=== PATIENT | male | born 1935 | race Caucasian/White ===

== ENCOUNTER 2016-06-08 11:14 | Inpatient (IN) | payer MEDICARE ==
[~2016-06-08] VITALS: Ht 180.3 cm; Wt 58.7 kg
[~2016-06-08 11:14] MED LIST: ACET325T21 PO; ALBU8.5H3 INH; ALBU8.5H3 MT; ALBUT; ALBUTEROL INH; AMLO-218 PO; AMLO5TAB2 PO; ASPI81TA50 PO; CALC-31 PO; CALC3.7S5 NAS; CEPH-368 PO; CIPR500T87 PO; CYCL-259 PO; DUONEB INH; FURO-93 PO; FURO20TA3 PO; FURO40TA6 PO; HYDR-3138 PO; IPRA3AMP INH; IPRA3AMP IPPB; LISI-170 PO; METO5TAB5 PO; MORP15TA39 PO; POTA10TA90 PO; PRAV40TA PO; PRAV40TA2 PO; PRED50TA PO; PREDNISONE PO; RIVA10TA PO; SPIR25TA3 PO; TAMS0.4C2 PO; TIOT18CA INH; WARF2.5T PO; WARF5TAB; WARF5TAB7 PO
[2016-06-08] MEDS ORDERED: methylPREDNISolone SOD SUCC 125 MG/2 ML ONE (11:43)
[2016-06-08] MEDS ORDERED: SODIUM CHLORIDE FLUSH 10ML SYR IVF ONE (12:00)
[2016-06-08] MEDS ORDERED: methylPREDNISolone SOD SUCC 125 MG/2 ML IVP ONE (12:00)
[2016-06-08] MEDS ORDERED: MAGNESIUM SULFATE PMX 2GM/50ML 50 ML IV ONE (12:00)
[2016-06-08] MEDS ORDERED: ALBUTEROL/IPRATROPIUM 2.5MG/0.5MG, 3 ML NPPB SCH (12:00)
[2016-06-08 12:12] LABS: ABG COLLECTION SITE LEFT RADIAL; COLLATERAL CIRCULATION TESTING NORMAL
[2016-06-08 12:28] LABS: BLOOD UREA NITROGEN 40 mg/dL (7-18)
[2016-06-08 12:33] LABS: HEMOGLOBIN 13.4 g/dL (13.7-18.0)
[2016-06-08 12:34] LABS: ASPARTATE AMINO TRANSFERASE 16 U/L (15-37); IS PT STATUS REG ER OR PRE ER? YES
[2016-06-08] MEDS ORDERED: AZITHROMYCIN 500 MG in SODIUM CHLORIDE 0.9% 250 ML IV ONE (13:30)
[2016-06-08] MEDS: SODIUM CHLORIDE 0.9% 1,000 ML IV SCH (13:43)
[2016-06-08] MEDS ORDERED: ENALAPRILAT 1.25 MG/ML, 2ML IVPush PRN (14:00)
[2016-06-08] MEDS ORDERED: HYDROcodone/APAP 5/325 TABLET PO PRN (14:00)
[2016-06-08] MEDS ORDERED: MORPHINE SULFATE 4 MG/ML, 1ML IVPush PRN (14:00)
[2016-06-08] MEDS ORDERED: DOCUSATE 100 MG CAPSULE PO PRN (14:00)
[2016-06-08] MEDS: ALBUTEROL/IPRATROPIUM 2.5MG/0.5MG, 3 ML NPPB SCH ×3 (14:00→22:47)
[2016-06-08] MEDS: methylPREDNISolone SOD SUCC 125 MG/2 ML IVPush SCH ×2 (14:30→22:54)
[2016-06-08] MEDS: NICOTINE 14MG/24 HR PATCH.TD24 TD SCH (16:10)
[2016-06-08 17:50] VITALS: BP 149/76
[2016-06-08] MEDS ORDERED: WARFARIN 3 MG TABLET PO-COUM ONE (18:00)
[2016-06-08] MEDS: ACETAMINOPHEN 325 MG TABLET PO PRN (18:57)
[2016-06-08 19:45] LABS: BLOOD UREA NITROGEN 44 mg/dL (7-18)
[2016-06-08] MEDS: WARFARIN 2.5 MG TABLET PO-COUM SCH (20:25)
[2016-06-08 22:10] VITALS: BP 133/72
[2016-06-09] MEDS: SODIUM CHLORIDE 0.9% 1,000 ML IV SCH ×2 (01:25→09:43)
[2016-06-09 01:30] VITALS: BP 146/75
[2016-06-09] MEDS: ALBUTEROL/IPRATROPIUM 2.5MG/0.5MG, 3 ML NPPB SCH ×4 (01:58→22:09)
[2016-06-09] MEDS: ACETAMINOPHEN 325 MG TABLET PO PRN (03:32)
[2016-06-09] MEDS: methylPREDNISolone SOD SUCC 125 MG/2 ML IVPush SCH ×2 (04:51→19:06)
[2016-06-09 05:50] LABS: BLOOD UREA NITROGEN 46 mg/dL (7-18)
[2016-06-09 06:24] LABS: HEMOGLOBIN 12.9 g/dL (13.7-18.0)
[2016-06-09 07:08] LABS: DIFF TOTAL CELLS COUNTED 100 CELL DIFF
[2016-06-09 07:10] LABS: ANISOCYTOSIS 1+; VERIFY COUNTS? YES
[2016-06-09 07:20] VITALS: BP 125/68
[2016-06-09] MEDS: SPIRONOLACTONE 25 MG TABLET PO SCH (08:29)
[2016-06-09] MEDS: TAMSULOSIN 0.4 MG CAP.ER.24H PO SCH (08:29)
[2016-06-09] MEDS: CALCIUM/VITAMIN D3 250-125 TABLET PO SCH (08:29)
[2016-06-09] MEDS: METOLAZONE 5 MG TABLET PO SCH (08:29)
[2016-06-09] MEDS: AMLODIPINE 5 MG TABLET PO SCH (08:30)
[2016-06-09] MEDS: PRAVASTATIN 40 MG TABLET PO SCH (08:30)
[2016-06-09] MEDS: AZITHROMYCIN 250 MG TABLET PO SCH (08:30)
[2016-06-09] MEDS: FUROSEMIDE 40 MG TABLET PO SCH (08:30)
[2016-06-09] MEDS ORDERED: predniSONE 50MG TABLET PO SCH (09:00)
[2016-06-09] MEDS ORDERED: WARFARIN 2.5 MG TABLET PO-COUM SCH (09:00)
[2016-06-09] MEDS: CALCITONIN NASAL 200 UNITS/0.09ML, 3.7ML NAS SCH (10:21)
[2016-06-09] MEDS ORDERED: methylPREDNISolone SOD SUCC 125 MG/2 ML IVPush SCH ×2 (13:00)
[2016-06-09 13:10] VITALS: BP 153/84
[2016-06-09] MEDS: NICOTINE 14MG/24 HR PATCH.TD24 TD SCH (15:24)
[2016-06-09] MEDS: WARFARIN 2.5 MG TABLET PO-COUM SCH (18:03)
[2016-06-09 21:33] VITALS: BP 120/75
[2016-06-10] MEDS: methylPREDNISolone SOD SUCC 125 MG/2 ML IVPush SCH ×4 (01:18→23:44)
[2016-06-10] MEDS: ALBUTEROL/IPRATROPIUM 2.5MG/0.5MG, 3 ML NPPB SCH ×6 (03:10→23:00)
[2016-06-10 05:12] VITALS: BP 159/82
[2016-06-10 07:37] VITALS: BP 122/75
[2016-06-10 08:21] LABS: BLOOD UREA NITROGEN 48 mg/dL (7-18)
[2016-06-10] MEDS: CALCITONIN NASAL 200 UNITS/0.09ML, 3.7ML NAS SCH (08:42)
[2016-06-10] MEDS: AMLODIPINE 5 MG TABLET PO SCH (08:44)
[2016-06-10] MEDS: FUROSEMIDE 40 MG TABLET PO SCH (08:44)
[2016-06-10] MEDS: TAMSULOSIN 0.4 MG CAP.ER.24H PO SCH (08:44)
[2016-06-10] MEDS: AZITHROMYCIN 250 MG TABLET PO SCH (08:45)
[2016-06-10] MEDS: METOLAZONE 5 MG TABLET PO SCH (08:45)
[2016-06-10] MEDS: PRAVASTATIN 40 MG TABLET PO SCH (08:45)
[2016-06-10] MEDS: CALCIUM/VITAMIN D3 250-125 TABLET PO SCH (08:45)
[2016-06-10] MEDS: SPIRONOLACTONE 25 MG TABLET PO SCH (08:45)
[2016-06-10] MEDS: OMEPRAZOLE 10 MG CAPSULE.DR PO SCH (08:46)
[2016-06-10] MEDS ORDERED: methylPREDNISolone SOD SUCC 125 MG/2 ML IVPush SCH (09:00)
[2016-06-10] MEDS ORDERED: POTASSIUM CHLORIDE 20 MEQ TAB.ER.PRT PO ONE (09:30)
[2016-06-10 12:19] VITALS: BP 164/91
[2016-06-10] MEDS: NICOTINE 14MG/24 HR PATCH.TD24 TD SCH (14:16)
[2016-06-10] MEDS: WARFARIN 2.5 MG TABLET PO-COUM SCH (18:10)
[2016-06-10 19:56] VITALS: BP 162/99
[2016-06-10] MEDS: GUAIFENESIN ER 600 MG TABLET PO SCH (23:41)
[2016-06-11 02:37] VITALS: BP 157/81
[2016-06-11] MEDS: ALBUTEROL/IPRATROPIUM 2.5MG/0.5MG, 3 ML NPPB SCH ×5 (03:10→18:25)
[2016-06-11 06:02] LABS: BLOOD UREA NITROGEN 43 mg/dL (7-18)
[2016-06-11 06:40] VITALS: BP 152/92
[2016-06-11] MEDS: FUROSEMIDE 40 MG TABLET PO SCH (09:59)
[2016-06-11] MEDS: POTASSIUM CHLORIDE 20 MEQ TAB.ER.PRT PO SCH ×2 (09:59→17:29)
[2016-06-11] MEDS: GUAIFENESIN ER 600 MG TABLET PO SCH ×2 (09:59→22:00)
[2016-06-11] MEDS: AZITHROMYCIN 250 MG TABLET PO SCH (09:59)
[2016-06-11] MEDS: SPIRONOLACTONE 25 MG TABLET PO SCH (09:59)
[2016-06-11] MEDS: METOLAZONE 5 MG TABLET PO SCH (09:59)
[2016-06-11] MEDS: CALCIUM/VITAMIN D3 250-125 TABLET PO SCH (09:59)
[2016-06-11] MEDS: AMLODIPINE 5 MG TABLET PO SCH (09:59)
[2016-06-11] MEDS: TAMSULOSIN 0.4 MG CAP.ER.24H PO SCH (09:59)
[2016-06-11] MEDS: PRAVASTATIN 40 MG TABLET PO SCH (10:00)
[2016-06-11] MEDS: OMEPRAZOLE 10 MG CAPSULE.DR PO SCH (10:00)
[2016-06-11] MEDS: CALCITONIN NASAL 200 UNITS/0.09ML, 3.7ML NAS SCH (10:02)
[2016-06-11] MEDS: IPRATROPIUM 0.5 MG/2.5 ML INHA HHN SCH ×2 (11:00→15:00)
[2016-06-11 12:58] VITALS: BP 144/80
[2016-06-11] MEDS: NICOTINE 14MG/24 HR PATCH.TD24 TD SCH (13:35)
[2016-06-11] MEDS ORDERED: methylPREDNISolone SOD SUCC 125 MG/2 ML IVPush SCH (14:00)
[2016-06-11] MEDS: ACETAMINOPHEN 325 MG TABLET PO PRN (17:29)
[2016-06-11] MEDS: WARFARIN 2.5 MG TABLET PO-COUM SCH (17:29)
[2016-06-11 20:17] VITALS: BP 144/81
[2016-06-11] MEDS: methylPREDNISolone SOD SUCC 125 MG/2 ML IVPush SCH (20:25)
[2016-06-12 02:14] VITALS: BP 138/85
[2016-06-12] MEDS: methylPREDNISolone SOD SUCC 125 MG/2 ML IVPush SCH ×4 (02:35→21:24)
[2016-06-12 05:27] LABS: BLOOD UREA NITROGEN 55 mg/dL (7-18)
[2016-06-12] MEDS ORDERED: MAGNESIUM SULFATE 1 GM in SODIUM CHLORIDE 0.9% 50 ML IV ONE (06:30)
[2016-06-12] MEDS ORDERED: SODIUM PHOSPHATE 4 MEQ/ML IV ONE (06:30)
[2016-06-12] MEDS ORDERED: SODIUM PHOSPHATE 20 MMOL in SODIUM CHLORIDE 0.9% 500 ML IV ONE (07:00)
[2016-06-12] MEDS ORDERED: ALBUTEROL/IPRATROPIUM 2.5MG/0.5MG, 3 ML NPPB PRN (07:00)
[2016-06-12 07:27] VITALS: BP 141/82
[2016-06-12] MEDS: IPRATROPIUM 0.5 MG/2.5 ML INHA HHN SCH ×4 (07:30→23:37)
[2016-06-12] MEDS: OMEPRAZOLE 10 MG CAPSULE.DR PO SCH (10:32)
[2016-06-12] MEDS: POTASSIUM CHLORIDE 20 MEQ TAB.ER.PRT PO SCH ×2 (10:32→17:33)
[2016-06-12] MEDS: FUROSEMIDE 40 MG TABLET PO SCH (10:33)
[2016-06-12] MEDS: CALCITONIN NASAL 200 UNITS/0.09ML, 3.7ML NAS SCH (10:33)
[2016-06-12] MEDS: TAMSULOSIN 0.4 MG CAP.ER.24H PO SCH (10:33)
[2016-06-12] MEDS: SPIRONOLACTONE 25 MG TABLET PO SCH (10:33)
[2016-06-12] MEDS: GUAIFENESIN ER 600 MG TABLET PO SCH ×2 (10:33→21:23)
[2016-06-12] MEDS: PRAVASTATIN 40 MG TABLET PO SCH (10:34)
[2016-06-12] MEDS: METOLAZONE 5 MG TABLET PO SCH (10:34)
[2016-06-12] MEDS: AMLODIPINE 5 MG TABLET PO SCH (10:34)
[2016-06-12] MEDS: CALCIUM/VITAMIN D3 250-125 TABLET PO SCH (10:34)
[2016-06-12] MEDS: AZITHROMYCIN 250 MG TABLET PO SCH (10:35)
[2016-06-12] MEDS ORDERED: LORazepam INTENSOL 2 MG/ML BC PRN (11:30)
[2016-06-12 12:19] VITALS: BP 171/95
[2016-06-12] MEDS ORDERED: LORazepam 0.5MG TABLET PO ONE (14:00)
[2016-06-12] MEDS: NICOTINE 14MG/24 HR PATCH.TD24 TD SCH (14:23)
[2016-06-12] MEDS: WARFARIN 2.5 MG TABLET PO-COUM SCH (17:33)
[2016-06-12 20:21] VITALS: BP 160/88
[2016-06-13 02:12] VITALS: BP 143/85
[2016-06-13] MEDS: methylPREDNISolone SOD SUCC 125 MG/2 ML IVPush SCH (06:36)
[2016-06-13 07:55] VITALS: BP 140/89
[2016-06-13] MEDS: POTASSIUM CHLORIDE 20 MEQ TAB.ER.PRT PO SCH ×2 (08:00→08:13)
[2016-06-13] MEDS: SPIRONOLACTONE 25 MG TABLET PO SCH (08:13)
[2016-06-13] MEDS: FUROSEMIDE 40 MG TABLET PO SCH (08:13)
[2016-06-13] MEDS: AMLODIPINE 5 MG TABLET PO SCH (08:13)
[2016-06-13] MEDS: AZITHROMYCIN 250 MG TABLET PO SCH (08:13)
[2016-06-13] MEDS: TAMSULOSIN 0.4 MG CAP.ER.24H PO SCH (08:13)
[2016-06-13] MEDS: GUAIFENESIN ER 600 MG TABLET PO SCH (08:13)
[2016-06-13] MEDS: PRAVASTATIN 40 MG TABLET PO SCH (08:13)
[2016-06-13] MEDS: CALCIUM/VITAMIN D3 250-125 TABLET PO SCH (08:13)
[2016-06-13] MEDS: OMEPRAZOLE 10 MG CAPSULE.DR PO SCH (08:14)
[2016-06-13] MEDS: METOLAZONE 5 MG TABLET PO SCH (08:14)
[2016-06-13] MEDS: CALCITONIN NASAL 200 UNITS/0.09ML, 3.7ML NAS SCH (08:14)
[2016-06-13] MEDS ORDERED: ALBUTEROL/IPRATROPIUM 2.5MG/0.5MG, 3 ML NEB STA (08:57)
[2016-06-13] MEDS ORDERED: LORazepam INTENSOL 2 MG/ML BC ONE (09:00)
[2016-06-13] MEDS: IPRATROPIUM 0.5 MG/2.5 ML INHA HHN SCH (10:10)
[2016-06-13 10:13] LABS: PH, VENOUS 7.389 pH (7.320-7.420)
[2016-06-13] MEDS ORDERED: methylPREDNISolone SOD SUCC 125 MG/2 ML IVPush SCH (12:00)
[2016-06-13] MEDS: NICOTINE 14MG/24 HR PATCH.TD24 TD SCH (14:00)
[2016-06-13] MEDS ORDERED: morphine SULFATE 125 MG in SODIUM CHLORIDE 0.9% 237.5 ML IV PRN (16:06)
[2016-06-13] MEDS ORDERED: LORazepam INTENSOL 2 MG/ML SL PRN (16:30)
[2016-06-13] MEDS ORDERED: morphine SULFATE ORAL.CONC 20 MG/ML BC PRN (16:30)
[2016-06-13] MEDS ORDERED: MORPHINE SULFATE 4 MG/ML, 1ML IVPush PRN (16:30)
[2016-06-13] MEDS ORDERED: SCOPOLAMINE PATCH, 1.5MG PATCH.TD72 TD PRN ×2 (16:30)
[2016-06-13] MEDS ORDERED: LORazepam 2 MG/ML, 1ML IVPush PRN (16:30)
[2016-06-13] MEDS ORDERED: ATROPINE OPHTH SOLN 1%, 5ML BC PRN (16:30)
[2016-06-13 19:05] VITALS: BP 137/74
[2016-06-13] MEDS: ACETAMINOPHEN 325 MG TABLET PO PRN (19:28)
[2016-06-13] MEDS ORDERED: LORazepam 0.5MG TABLET ONE (20:12)
[2016-06-13] MEDS: ALBUTEROL/IPRATROPIUM 2.5MG/0.5MG, 3 ML NPPB SCH (20:25)
[2016-06-14] MEDS: ACETAMINOPHEN 325 MG TABLET PO PRN (00:54)
[2016-06-14] MEDS: ALBUTEROL/IPRATROPIUM 2.5MG/0.5MG, 3 ML NPPB SCH ×2 (01:12→05:19)
[2016-06-14] MEDS: MORPHINE SULFATE 4 MG/ML, 1ML IVPush PRN ×3 (05:04→14:08)
[2016-06-14] MEDS: OMEPRAZOLE 10 MG CAPSULE.DR PO SCH (07:30)
[2016-06-14 09:27] VITALS: BP 127/75
[2016-06-14] MEDS: TAMSULOSIN 0.4 MG CAP.ER.24H PO SCH (10:00)
[2016-06-14] MEDS: NICOTINE 14MG/24 HR PATCH.TD24 TD SCH (14:10)
== END 2016-06-14 15:33 | DRG 682 ==
LOC: ED 12:07 → EDIP 13:21 → CCU 14:44 → 4NOR 17:31 → CCU 06-13 14:00 → 4NOR 06-13 17:19
PROVIDERS: ADMIT Family Medicine; ATTEND Family Medicine
PROC: 5A09457 Assistance with Respiratory Ventilation, 24-96 Consecutive Hours, Continuous Positive Airway Pressure (ICD-10-PCS; principal; 2016-06-08)
DX: N17.9 Acute kidney failure, unspecified (principal); J96.21 Acute and chronic respiratory failure with hypoxia; J18.9 Pneumonia, unspecified organism; J44.0 Chronic obstructive pulmonary disease with (acute) lower respiratory infection; E87.1 Hypo-osmolality and hyponatremia; I50.32 Chronic diastolic (congestive) heart failure; M48.50XA Collapsed vertebra, not elsewhere classified, site unspecified, initial encounter for fracture; J44.1 Chronic obstructive pulmonary disease with (acute) exacerbation; I27.2 Other secondary pulmonary hypertension; I48.91 Unspecified atrial fibrillation; I11.0 Hypertensive heart disease with heart failure; E78.00 Pure hypercholesterolemia, unspecified; E78.5 Hyperlipidemia, unspecified; E86.0 Dehydration; F17.200 Nicotine dependence, unspecified, uncomplicated; G89.29 Other chronic pain; I25.10 Atherosclerotic heart disease of native coronary artery without angina pectoris; I35.8 Other nonrheumatic aortic valve disorders; I34.0 Nonrheumatic mitral (valve) insufficiency; N40.0 Benign prostatic hyperplasia without lower urinary tract symptoms; Z51.5 Encounter for palliative care; Z66 Do not resuscitate; Z79.01 Long term (current) use of anticoagulants; Z79.52 Long term (current) use of systemic steroids; Z85.46 Personal history of malignant neoplasm of prostate; Z86.73 Personal history of transient ischemic attack (TIA), and cerebral infarction without residual deficits; Z93.3 Colostomy status
CPT/HCPCS: 36415; 36600; 71010; 80048; 80053; 82803; 83605; 83735; 83880; 84100; 84443; 84484; 85025; 85610; 87040; 87081; 93005; 94640; 94660; 96365; 96375; J0456; J3475; J7620; J7644; J2930; J7030; J7040; J7050